=== PATIENT | female | born 1990 | race Caucasian/White ===

== ENCOUNTER 2017-08-17 20:35 | Emergency (ER) | payer OTHER ==
[~2017-08-17] VITALS: Ht 160 cm; Wt 67.5 kg
[2017-08-17 20:39] VITALS: TEMP 36.3; Ht 160 cm; Wt 67.5 kg
[2017-08-17] MEDS ORDERED: HYDROCORTISONE ACETATE 25 MG SUPP PR STA (20:51)
[2017-08-17] MEDS ORDERED: OXYCODONE IR HOME PACK PO ONE (21:00)
[2017-08-17] MEDS ORDERED: XYLOCAINE 1%/SOD BICARB 20 ML VIAL INFIL ONE (21:00)
[2017-08-17] MEDS ORDERED: OXYC1TAB3 PO (21:11)
[2017-08-17] MEDS ORDERED: HYDR25SU20 PR (21:11)
[2017-08-17] MEDS ORDERED: ACET-1256 PO (21:15)
[2017-08-17] MEDS ORDERED: OXYC-57 PO (21:15)
[2017-08-17] MEDS ORDERED: STERIOD CREAM TOP (21:15)
--- NOTE | 2017-08-17 21:52 | EMERGENCY ROOM VISIT NOTE ---
History First contact with patient: 20:42 Chief Complaint: RECTAL PAIN Stated Complaint: HEMORRHOID, PAIN, CAN BARELY WALK Nursing Triage Summary: Pt reports painful hemorrhoid for the past week, has tried OTC treatments without relief. Reports surgery in the past for hemorrhoids. Pt states she took one of her fiance's Oxy approx 1800. History of Present Illness The patient is a 27 year old female who presents to the Emergency Room with complaints of an extremely painful and swollen external hemorrhoid. The patient has been dealing with discomfort for the past week. The patient has had a prior thrombectomy performed. The patient developed hemorrhoids after her last childbirth. She has not followed up with her PCP or a general surgeon to discuss possible surgical consultation. The patient denies any recent constipation, abdominal pain or urinary symptoms. She rates her discomfort an 8 out of 10. Review of Systems 10 system review was performed and was negative except for pertinent positives and negatives as indicated in history of present illness Past Medical/Surgical History Medical Problems: (1) No Known Active Medical Problems (2) Thrombosed hemorrhoids (3) Vaginal delivery Family History Patient reports no known family medical history. Social History Smoking Status: Current Every Day Smoker Alcohol Use: none Marital Status: Housing Status: lives with family Current/Historical Medications Scheduled Hydrocortisone Acetate (Rectal (Anusol-Hc), 25 MG KS BID [Steriod Cream], 1 APPL TOP PRN UD Scheduled PRN Acetaminophen (Tylenol), 1,000 MG PO Q6 PRN for Headache or Pain Oxycodone Ir (Roxicodone Ir), 1-2 TAB PO Q4H PRN for Pain Oxycodone/Acetaminophen 5MG/325MG (Percocet 5MG/325MG), 1 TABLET PO PRN UD PRN for Pain Physical Exam Vital Signs Date Time Temp Pulse Resp B/P (MAP) Pulse Ox O2 Delivery O2 Flow Rate FiO2 08/17/17 20:39 36.3 112 18 126/75 97 Room Air Physical Exam CONSTITUTIONAL: Healthy and well nourished. Alert and oriented X 3 with positive affect. Patient appears in moderate discomfort from pain. HEENT: Normocephalic, atraumatic. Pupils equal, round and reactive. NECK: Full active range of motion without discomfort. RESPIRATORY: Clear to auscultation bilaterally with no wheezing, crackles, rhonchi or stridor. CARDIOVASCULAR: Regular rate and rhythm with no murmurs, rubs or gallops. GASTROINTESTINAL: Bowel sounds present in all quadrants. Soft and nontender to palpation. With a female ED residential air sealing technician present, examination shows several flaccid external hemorrhoids with a single marble-sized purplish external hemorrhoid that is firm to palpation. There is no perirectal erythema or induration. MUSCULOSKELETAL: Full range of motion of all joints without discomfort. INTEGUMENTARY: No rash or other significant dermatologic conditions noted. NEUROLOGIC: No focal neurologic deficits noted. Medical Decision & Procedures Procedure Patient provided verbal consent for hemorrhoid thrombectomy under local anesthesia. Using buffered 1% lidocaine without epinephrine, good local anesthesia was administered. The peripheral tissue was cleansed with iodine. Using a #11 scalpel, a 1 cm incision was made with a small clot that popped out of the incision on its own. The area was then irrigated with normal saline, then a dry gauze was applied. An Anusol HC suppository was inserted. The patient tolerated the procedure well. ED Course Patient history and physical exam were performed. Nurse's notes were reviewed. Vital signs were reviewed and were normal. Hemorrhoid thrombectomy was performed under local anesthesia. An Anusol HC suppository was inserted after the procedure. The patient was provided a home pack for OxyIR 5 mg, and was provided prescriptions for Anusol HC suppository twice daily for 5 days, and OxyIR 5 mg, dispensed #15 with no refills. The patient was encouraged to take a stool softener, and keep the hemorrhoids clean. I did encourage her to follow -up with her PCP to discuss surgical referral given the recurrence of her thrombosed external hemorrhoids. Return to the emergency department for any current worsening symptoms. The patient was happy with plan of care, and rated her discomfort a 2 out of 10 at the conclusion of my exam, and was discharged with her mother. Medical Decision [place] Drug Monitoring Program Search Results: patient reviewed within database, no issues identified Medication Reconcilliation Current Medication List: was personally reviewed by me Blood Pressure Screening Patient's blood pressure: Normal blood pressure Impression Primary Impression: Thrombosed external hemorrhoid Departure Information Dispostion Home / Self-Care Prescriptions Hydrocortisone Acetate (Rectal (ANUSOL-HC) 25 Mg Sup 25 MG KS BID, #7 SUP Prov: Mitesh Thacker PA 08/17/17 Oxycodone Ir (Roxicodone Ir) 5 Mg Tab 1-2 TAB PO Q4H Y for Pain, #15 TAB For Initial Treatment Prov: Mitesh Thacker PA 08/17/17 Forms HOME CARE DOCUMENTATION FORM, IMPORTANT VISIT INFORMATION Patient Instructions Hemorrhoids Thrombosed, My [facility] Additional Instructions Wear absorbent pad until bleeding stops. Use Anusol HC suppositories as prescribed to help reduce swelling and pain. Take a stool softener to avoid constipation. Clean the hemorrhoids after bowel movements. Ibuprofen 800 mg and/or Tylenol 1000 mg every 8 hours. You may also alternate these medications for more effective pain relief: Ibuprofen --4 HRS--> Tylenol --4 HRS--> ibuprofen --4 HRS--> Tylenol .... OxyIR if needed for worse pain. Do not drink alcohol or drive while taking OxyIR. Follow-up with your family doctor for surgical referral to discuss further definitive treatment of your hemorrhoids.
[2017-08-17 21:53] VITALS: BP 129/82; PULSE 74; O2SAT 98
== END 2017-08-17 21:53 | disposition home or self-care (01) ==
LOC: C.EDB 20:37 → C.EDA 21:53
DX: K64.5 Perianal venous thrombosis (principal); F17.210 Nicotine dependence, cigarettes, uncomplicated